=== PATIENT | female | born 1970 | race Caucasian/White ===

== ENCOUNTER 2020-11-30 15:48 | Emergency (ER) | payer SELFPAY ==
--- NOTE | ~2020-11-30 | CT_ITS ---
EXAMINATION: CT facial bones w con DATE: 11/30/2020 17:48 INDICATION: Left jaw pain and swelling. TECHNIQUE: Computed tomography (CT) of the facial bones and maxillofacial region was performed with 7 5 mL Omnipaque 350 intravenous contrast. Automated exposure control and iterative reconstruction tech [employer] were employed. The dose-length product was 286.17 mGy-cm. COMPARISON: Maxillofacial CT 03/15/2018, 02/19/17 FINDINGS: There is a 2.0 x 1.5 cm mass in superficial left parotid gland. There is leftward deviation of the superior nasal septum and rightward deviation of the inferior nasal septum. There is mild muc osal thickening in left maxillary sinus. The mastoid air cells are normal. There are carious lesions of teeth 3, 8, 18, and 28. Tooth 19 is broken with periapical lucencies. IMPRESSION: 1. Dental disease. 2. 2.0 cm left parotid mass, stable from 02/19/17. The differential diagnosis includes benign mixed tu mor and Warthin tumor. Ultrasound-guided fine-needle aspiration is recommended. Reviewed, dictated and finalized at location A. STANT PROFESSOR OF DIETETICS IMPRESSION: 1. Dental disease. 2. 2.0 cm left parotid mass, stable from 02/19/17. The differential diagnosis in cludes benign mixed tumor and Warthin tumor. Ultrasound-guided fine-needle aspi ration is recommended.
[2020-11-30 15:55] VITALS: BP 165/114; PULSE 86; RESP 20; TEMP 36.7; O2SAT 97
[2020-11-30 17:07] LABS: Basophils Absolute Auto 0.05 K/mm3 (0.00-0.10); Basophils Percent Auto 0.6 % (0.0-1.0); Eosinophils Absolute Auto 0.25 K/mm3 (0.02-0.50); Hematocrit 40.4 % (35.0-49.0); Hemoglobin 13.6 g/dL (12.0-15.0); Immature Granulocyte Absolute 0.03 K/mm3 (0.00-0.00); Immature Granulocyte Percent A 0.4 % (0.0-0.0); Lymphocytes Absolute Auto 2.63 K/mm3 (1.10-4.50); Lymphocytes Percent Auto 31.8 % (18.0-42.0); Mean Corpuscular HGB Conc 33.7 g/dL (32.0-36.0); Mean Corpuscular Hemoglobin 27.9 pg (27.0-31.0); Mean Corpuscular Volume 82.8 fL (78.0-102.0); Mean Platelet Volume 9.8 fl (9.2-11.8); Monocytes Absolute Auto 0.43 K/mm3 (0.10-0.90); Monocytes Percent Auto 5.2 % (2.0-11.0); Neutrophils Absolute Auto 4.9 K/mm3 (1.7-7.2); Platelet Count Result 378 K/mm3 (150-420); Red Blood Count 4.88 M/mm3 (4.20-5.40); Red Cell Distribution Width 12.8 % (11.6-14.4); White Blood Count 8.3 K/mm3 (4.8-10.8)
[2020-11-30 17:20] LABS: Alanine Aminotransferase 24 U/L (14-59); Albumin Level 3.7 g/dL (3.4-5.0); Alkaline Phosphatase 93 U/L (46-116); Anion Gap 11 mmol/L (8-16); Aspartate Amino Transferase 16 U/L (15-37); Bilirubin,Total 0.2 mg/dL (0.00-1.00); Blood Urea Nitrogen 10 mg/dL (7-18); Calcium 8.6 mg/dL (8.5-10.1); Carbon Dioxide 24 mmol/L (21-32); Chloride 101 mmol/L (98-108); Estimated Glomerular Filt Rate > 60; Glucose 274 mg/dL (70-99); Osmolality Calculated 291 mOsm/kg (285-295); Potassium 3.8 mmol/L (3.5-5.1); Sodium 136 mmol/L (136-145); Total Protein 6.8 g/dL (6.4-8.2)
--- NOTE | 2020-11-30 17:36 | ED.SKABFB ---
HPI - Skin/Abscess/Foreign Bdy General Chief complaint: Skin/Abscess/Foreign Body Stated complaint: swollen jaw/pain Time Seen by Provider: 11/30/20 16:10 Source: patient Mode of arrival: ambulatory Limitations: no limitations History of Present Illness HPI narrative: Patient states to me she has been seen in past for parotid gland swelling on left side and that this had been treated in the past but the gland never returned to a normal size. She now has increased swelling and tenderness under angle of jaw on left, and broken off teeth over that area in her mouth. Pain has been moderately severe, ongoing, not relieved by ibuprofen. Nothing has made this better. Pain has steadily worse. Onset (ago): day(s) Severity: moderate Quality: aching Pain Consistency: constant Relieving factors: none Exacerbating factors: none Associated symptoms: denies other symptoms Related Data Allergies Allergy/AdvReac Type Severity Reaction Status Date / Time No Known Allergies Allergy Verified 11/30/20 16:01 Review of Systems Constitutional: Constitutional: Reports no additional constitutional complaints Eyes: Eyes: Reports no additional eye complaints ENT: Reports system reviewed and no additional complaints, except as documented Cardiovascular: Cardiovascular: Reports no additional cardiovascular complaints Respiratory: Respiratory: Reports no additional respiratory complaints Gastrointestinal: Gastrointestinal: Reports no additional gastrointestinal complaints Genitourinary: Genitourinary: Reports no additional female genitourinary complaints Musculoskeletal: Musculoskeletal: Reports no additional musculoskeletal complaints Integumentary/Breasts: Skin/Breast: Reports system reviewed and no additional complaints, except as docu Neurologic: Reports system reviewed and no additional complaints, except as documented Psychiatric: Psychiatric: Reports no additional psychiatric complaints Endocrine: Endocrine: Reports no additional endocrine complaints Hematologic/Lymphatic: Hematologic/Lymphatic: Reports no additional hematologic/lymphatic complaints Allergic/Immunologic: Allergic/Immunologic: Reports no additional allergic/immunologic complaints [facility] Past Medical History Medical History (Updated 12/01/20 @ 00:49 by Carlos Pal MD) Abscessed tooth Diabetes Parotid mass Family History Family History (Updated 12/01/20 @ 00:51 by Carlos Pal MD) Mother CAD (coronary artery disease) COPD with emphysema Father CAD in [place] artery Hypertension Social History Social History (Updated 12/01/20 @ 00:52 by Carlos Pal MD) Smoking packs per day: 0.5 Smoking cigarettes per day: 10.0 Alcohol use details: none Living arrangements: with family 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 She is swollen over base of left jaw at where submandibular gland is. This is tender to touch. She has two broken off teeth above this area that are probably chronically abscessed. Eyes: Conjunctivae: conjunctivae normal Neck: Neck: normal visual inspection Chest: Chest palpation & inspection: normal inspection of the chest Resp: Effort & Inspection: normal respiratory effort Cardio: Rate: regular rate Rhythm: regular rhythm GI: GI Palp: Yes Soft to palpation (nontender) Skin: General skin exam: normal color Neuro: General: patient oriented x3 and moves all extremities Extrem: General: normal to inspection Psych: Appearance: grossly normal Mental Status: mental status grossly normal Thought content: Yes Normal thought content present Course Course Emergency Course: We did a Ct scan and labs. I was concerned she may have an abscess large enough to be require drainage.
[2020-11-30 18:43] VITALS: BP 160/90; PULSE 90; RESP 18
[2020-11-30] MEDS: KETOROLAC (*BKC) 60 MG/2 ML VIAL IM (19:07)
[2020-11-30] MEDS: PENICILLIN G BENZATHINE 1,200,000 UNITS/2 ML SYRINGE 1200000 UNITS IM (19:08)
[2020-11-30 19:13] VITALS: BP 140/88; PULSE 88; RESP 18; TEMP 36.8; O2SAT 95
== END 2020-11-30 19:15 | disposition home or self-care (01) ==
PROVIDERS: Emergency Provider Emergency Medicine; PCP Family Medicine
DX: K11.8 Other diseases of salivary glands (principal); K04.7 Periapical abscess without sinus; E11.9 Type 2 diabetes mellitus without complications; F17.210 Nicotine dependence, cigarettes, uncomplicated
CPT/HCPCS: 36415; 70487; 80053; 85025; 96372; 99283; 99284; J0561; J1885; Q9967

== ENCOUNTER 2021-12-07 19:00 | Emergency (ER) | payer SELFPAY ==
--- NOTE | ~2021-12-07 | XR_ITS ---
EXAMINATION: XR chest 2V 12/07/2021 20:26 INDICATION: Chest pressure PROCEDURE: 2 view chest COMPARISON: 03/19/2019 FINDINGS: The lungs are clear. The cardiomediastinal silhouette is within normal limits. There are no pleural effusions. There is no pneumothorax suspected. IMPRESSION: 1: NO ACUTE CARDIOPULMONARY DISEASE. Reviewed, dictated and finalized at location A. 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
--- NOTE | 2021-12-07 19:05 | ECG_ITS ---
Measurements Intervals [place] Rate: 84 P: 14 MN: 130 QRS: 6 QRSD: 96 T: 4 QT: 366 QTc: 433 Interpretive Statements SINUS RHYTHM WITH FREQUENT SUPRAVENTRICULAR PREMATURE COMPLEXES BASELINE ARTIFACT ABNORMAL ECG NO PREVIOUS ECG AVAILABLE FOR COMPARISON Electronically Signed On 12-08-2021 10:56:25 BUDGET ENGINEER by Mino Aguirre M.D.
--- NOTE | 2021-12-07 19:15 | ED.CHESTPAIN ---
HPI - Chest Pain General Chief Complaint: Chest Pain Stated Complaint: chest pain, high BP Time Seen by Provider: 12/07/21 19:15 Source: patient Mode of arrival: ambulatory Limitations: no limitations History of Present Illness HPI narrative: 50-year-old woman with a history of hypertension comes to the ER complaining of chest pressure, headache, and not feeling well for the last 3 or 4 days. The symptoms wax and wane. She noticed that her blood pressure has been high for the last several days. She denies shortness of breath, syncope, vomiting, radiating chest pain. Five or 6 years ago, patient had similar symptoms and was seen at [facility]. There she had a negative stress test. She was also told that she did not have a heart attack. She normally takes metoprolol for her hypertension however she states she can not afford the medication and so she has been taking her 10 mg propranolol twice a day. complaint: other (Chest pressure) Onset (ago): day(s) (3) Timing of current episode: episodic and daily Prior episodes: Yes Onset: during rest Pain location: substernal Pain radiation: none Severity: mild Quality: other (Pressure) Relieving factors: nothing Exacerbating factors: nothing Associated symptoms: other (Headache) Treatment prior to arrival: aspirin (325 mg yesterday and 325 mg today) Risk Factors Coronary artery disease risk factors: diabetes, smoking history and hypertension Related Data Home Medications Medication Instructions Recorded Confirmed metoprolol tartrate 25 mg PO BID 12/07/21 12/07/21 Allergies Allergy/AdvReac Type Severity Reaction Status Date / Time No Known Allergies Allergy Verified 12/07/21 20:12 Review of Systems Review of Systems: All systems reviewed & are unremarkable except as noted in HPI and below Constitutional: Constitutional: Denies chills and Denies fever(s) ENT: Denies nasal congestion and Denies sore throat Cardiovascular: Cardiovascular: Reports chest pain, Denies rapid heart rate, Denies radiating jaw, neck or arm pain and Denies slow heart rate Respiratory: Respiratory: Denies cough and Denies dyspnea Gastrointestinal: Gastrointestinal: Denies abdominal pain, Denies nausea and Denies vomiting Musculoskeletal: Musculoskeletal: Denies arthralgias and Denies joint swelling Integumentary/Breasts: Skin/Breast: Denies pruritus, Denies erythema and Denies rash Neurologic: Denies dizziness, Denies syncope, Reports headache(s), Denies focal weakness and Denies numbness Allergic/Immunologic: Allergic/Immunologic: Denies throat swelling and Denies tongue swelling [facility] Past Medical History Medical History (Updated 12/08/21 @ 01:34 by Maury Gill MD) Abscessed tooth Diabetes Hypertension Parotid mass Family History Family History (Updated 12/01/20 @ 00:51 by Carlos Pal MD) Mother CAD (coronary artery disease) COPD with emphysema Father CAD in [place] artery Hypertension Social History Social History Smoking packs per day: 0.5 Smoking cigarettes per day: 10.0 Alcohol use details: none 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 Exam Const: General: healthy appearing, no acute distress and alert Orientation/consciousness: patient oriented x3 Limitations: no limitations Eyes: Conjunctivae: conjunctivae normal Pupils: Equal, round and reactive pupils present EOM: EOMs intact bilaterally Resp: Effort & Inspection: normal respiratory effort and not labored Auscultation: clear to auscultation bilaterally, no rales, no rhonchi and no wheezes Cardio: Rate: regular rate Rhythm: regular rhythm Heart sounds: no murmurs Skin: General skin exam: normal color, no jaundice and no pallor Rashes: no rashes Neuro: General: patient oriented x3, moves all extremities, no focal motor deficits and CN's II-XI intact bilaterally Speech: normal speech Gait exam (Keyur
[2021-12-07 19:24] VITALS: BP 195/162; PULSE 89; RESP 18; RESP 19; TEMP 36.9; O2SAT 99
[2021-12-07 19:25] VITALS: BP 162/135
[2021-12-07 19:30] VITALS: BP 134/92; PULSE 84; O2SAT 98
--- NOTE | 2021-12-07 19:43 | PC.NURSE ---
two unsuccessful attempts to start an IV, left AC and posterior left forearm
[2021-12-07 19:46] LABS: Basophils Absolute Auto 0.07 K/mm3 (0.00-0.10); Basophils Percent Auto 0.7 % (0.0-1.0); Eosinophils Absolute Auto 0.24 K/mm3 (0.02-0.50); Eosinophils Percent Auto 2.2 % (1.0-6.0); Hematocrit 43.7 % (35.0-49.0); Hemoglobin 14.8 g/dL (12.0-15.0); Immature Granulocyte Absolute 0.04 K/mm3 (0.00-0.00); Immature Granulocyte Percent A 0.4 % (0.0-0.0); Lymphocytes Absolute Auto 3.56 K/mm3 (1.10-4.50); Lymphocytes Percent Auto 33.1 % (18.0-42.0); Mean Corpuscular HGB Conc 33.9 g/dL (32.0-36.0); Mean Corpuscular Hemoglobin 28.1 pg (27.0-31.0); Mean Corpuscular Volume 82.9 fL (78.0-102.0); Mean Platelet Volume 10.1 fl (9.2-11.8); Monocytes Absolute Auto 0.74 K/mm3 (0.10-0.90); Monocytes Percent Auto 6.9 % (2.0-11.0); Neutrophils Absolute Auto 6.1 K/mm3 (1.7-7.2); Neutrophils Percent Auto 56.7 % (50.0-70.0); Platelet Count Result 407 K/mm3 (150-420); Red Blood Count 5.27 M/mm3 (4.20-5.40); Red Cell Distribution Width 12.6 % (11.6-14.4); White Blood Count 10.8 K/mm3 (4.8-10.8)
[2021-12-07 20:07] LABS: D Dimer 0.19 mg/L (0.19-0.50)
[2021-12-07 20:08] LABS: Alanine Aminotransferase 24 U/L (14-59); Albumin Level 3.7 g/dL (3.4-5.0); Alkaline Phosphatase 90 U/L (46-116); Anion Gap 13 mmol/L (8-16); Aspartate Amino Transferase 10 U/L (15-37); Bilirubin,Total 0.3 mg/dL (0.00-1.00); Blood Urea Nitrogen 14 mg/dL (7-18); Calcium 8.9 mg/dL (8.5-10.1); Carbon Dioxide 24 mmol/L (21-32); Chloride 102 mmol/L (98-108); Estimated Glomerular Filt Rate > 60; Glucose 211 mg/dL (70-99); NT Pro B Type Natriuretic Pept 16 pg/mL (0-125); Osmolality Calculated 294 mOsm/kg (285-295); Potassium 3.8 mmol/L (3.5-5.1); Sodium 139 mmol/L (136-145); Total Protein 6.8 g/dL (6.4-8.2)
[2021-12-07 20:11] LABS: Troponin I 9.3 ng/L (0.00-60.4)
[2021-12-07 20:12] LABS: Magnesium 1.7 mg/dL (1.8-2.4)
[2021-12-07 20:36] LABS: Add Urine Microscopic? YES; Appearance Urine Clear (Clear); Bilirubin Urine Negative (Negative); Blood Urine Negative (Negative); Color Urine Light Yellow (Yellow); Glucose Urine UA Negative (Negative); Ketones Urine Negative (Negative); Leukocyte Esterase Ur Trace LEU/UL (Negative); Nitrate Urine Negative (Negative); Protein Urine Trace (Negative); Specific Grav Ur 1.025 (1.010-1.020); Urobilinogen Urine 0.2 mg/dL (0.2-1.0)
[2021-12-07 20:46] LABS: Bacteria Urine 4+ /hpf; Squamous Epithelial Cell Urine Moderate /hpf (Few); WBC Urine 0-3 /hpf (0-3)
[2021-12-07 22:50] LABS: Troponin I 10.2 ng/L (0.00-60.4)
[2021-12-08 00:15] VITALS: BP 112/74; O2SAT 96
[2021-12-08 02:28] VITALS: BP 115/66; PULSE 78; RESP 16; TEMP 36.6; O2SAT 98
== END 2021-12-08 02:35 | disposition home or self-care (01) ==
PROVIDERS: Emergency Provider Emergency Medicine; PCP Family Medicine
DX: R07.9 Chest pain, unspecified (principal); I10 Essential (primary) hypertension
CPT/HCPCS: 36415; 71046; 80053; 81001; 83735; 83880; 84484; 85025; 85380; 93005; 99284

== ENCOUNTER 2022-12-15 15:06 | Emergency (ER) | payer OTHER, SELFPAY ==
--- NOTE | ~2022-12-15 | CT_ITS ---
EXAMINATION: CT abdomen pelvis w con DATE: 12/15/2022 17:06 INDICATION: Right lower quadrant and left lower quadrant abdominal pain for several days. Urinary gerald quency and urgency. History of kidney stones. TECHNIQUE: Computed tomography (CT) of the abdomen and pelvis was performed with 100 CC Omnipaque 350 intravenous contrast. Automated exposure control and iterative reconstruction technique were employe d. Exam dose: 510.64 mGy-cm total exam DLP. COMPARISON: None. FINDINGS: The lung bases are clear of infiltrate or consolidation. Normal heart size. No pericardial or pleural effusion. The liver, spleen, pancreas, gallbladder, bile ducts and pancreatic duct as well as adrenal glands ap pear normal. Approximately 12.5 mm upper pole and 8.5 mm lower pole left renal cysts. No other renal space-occupyi ng mass lesion is detected. No urinary tract calculus or hydroureteronephrosis. Normal caliber of the abdominal aorta. There is a large right ovarian cyst measuring up to 10.5 cm transverse, 9.8 cm vertical and 9 cm AP d imension. 11.5 mm left ovarian cyst. The uterus and urinary bladder are unremarkable. Normal appendix. No bowel obstruction, bowel wall thickening, pneumatosis or intraperitoneal free air . 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 No intraperitoneal or retroperitone al or pelvic mass lesion or adenopathy or ascites. Is noted otherwise. Mild degenerative change of the thoracic and lumbar spine. No suspicious osteolytic or osteoblastic l esions. IMPRESSION: Large right lower anterior abdominal and pelvic wall hematoma with surrounding subcutane ous fat soft tissue infiltration and mild fluid Left renal cysts Up to 10.5 cm right ovarian cyst, 11.5 mm left ovarian cyst Reviewed, dictated and finalized at [facility]. Reviewed, dictated and finalized at location [facility]. IMPRESSION: Large right lower anterior abdominal and pelvic wall hematoma with surrounding subcutaneous fat soft tissue infiltration and mild fluid Left renal cysts Up to 10.5 cm right ovarian cyst, 11.5 mm left ovarian cyst
--- NOTE | 2022-12-15 15:25 | ED.ABDPAIN ---
HPI - Abdominal Pain General Chief Complaint: Abdominal Pain Stated Complaint: abdominal pain Time Seen by Provider: 12/15/22 15:14 Source: patient Mode of arrival: ambulatory History of Present Illness HPI narrative: 51-year-old female with hypertension, diabetes mellitus, status post BTL, status post , status post uterine ablation, Kidney stones presents to the ER with -- 1 day history of left lower quadrant abdominal pain. The pain is intermittent. Has nausea without any vomiting or diarrhea. -- increased urinary frequency and increased urge. No dysuria or hematuria. -- Mass in the right suprapubic region which is chronic. MD elicited complaint: abdominal pain Pertinent past history: kidney stones Onset (ago): day(s) ( Started last night) Pain Consistency: intermittent Location: LLQ Severity: moderate Quality: aching Radiation: L flank and chest Migration to: no migration Exacerbating factors: nothing Relieving factors: nothing Associated symptoms: nausea Related Data Patient : No Home Medications Medication Instructions Recorded Confirmed metoprolol tartrate 25 mg tablet 25 mg PO BID 12/07/21 12/15/22 metformin 500 mg tablet 500 mg PO BID 12/15/22 12/15/22 Allergies Allergy/AdvReac Type Severity Reaction Status Date / Time codeine Allergy Nausea and Verified 12/15/22 15:27 Vomiting Review of Systems Review of Systems: All systems reviewed & are unremarkable except as noted in HPI and below Constitutional: Constitutional: Reports as per HPI and Reports no additional constitutional complaints Eyes: Eyes: Reports as per HPI and Reports no additional eye complaints ENT: Reports system reviewed and no additional complaints, except as documented and Reports as per HPI Cardiovascular: Cardiovascular: Reports as per HPI and Reports no additional cardiovascular complaints Respiratory: Respiratory: Reports as per HPI and Reports no additional respiratory complaints Gastrointestinal: Gastrointestinal: Reports as per HPI, Reports no additional gastrointestinal complaints and Reports abdominal pain Comments: chronic right suprapubic mass. New left lower quadrant abdominal pain. Genitourinary: Genitourinary: Reports no additional female genitourinary complaints Comments: Status post uterine ablation. Musculoskeletal: Musculoskeletal: Reports no additional musculoskeletal complaints and Reports as per HPI Integumentary/Breasts: Skin/Breast: Reports system reviewed and no additional complaints, except as docu and Reports as per HPI Neurologic: Reports system reviewed and no additional complaints, except as documented and Reports as per HPI Psychiatric: Psychiatric: Reports no additional psychiatric complaints and Reports as per HPI Endocrine: Endocrine: Reports no additional endocrine complaints and Reports as per HPI Hematologic/Lymphatic: Hematologic/Lymphatic: Reports no additional hematologic/lymphatic complaints and Reports as per HPI Allergic/Immunologic: Allergic/Immunologic: Reports no additional allergic/immunologic complaints and Reports as per HPI PMFSH Past Medical History Medical History Abscessed tooth Diabetes Hypertension Parotid mass Family History Family History Mother CAD (coronary artery disease) COPD with emphysema Father CAD in [place] artery Hypertension Social History Social History Smoking packs per day: 0.5 Smoking cigarettes per day: 10.0 Alcohol use details: none Living arrangements: with family 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
[2022-12-15 15:28] VITALS: BP 159/98; PULSE 94; RESP 20; TEMP 36.9; O2SAT 98
[2022-12-15 15:46] LABS: Basophils Absolute Auto 0.06 K/mm3 (0.00-0.10); Basophils Percent Auto 0.6 % (0.0-1.0); Eosinophils Absolute Auto 0.22 K/mm3 (0.02-0.50); Eosinophils Percent Auto 2.1 % (1.0-6.0); Hematocrit 41.5 % (35.0-49.0); Hemoglobin 14.3 g/dL (12.0-15.0); Immature Granulocyte Absolute 0.04 K/mm3 (0.00-0.00); Immature Granulocyte Percent A 0.4 % (0.0-0.0); Lymphocytes Absolute Auto 2.88 K/mm3 (1.10-4.50); Lymphocytes Percent Auto 27.4 % (18.0-42.0); Mean Corpuscular HGB Conc 34.5 g/dL (32.0-36.0); Mean Corpuscular Volume 81.2 fL (78.0-102.0); Mean Platelet Volume 9.9 fl (9.2-11.8); Monocytes Absolute Auto 0.64 K/mm3 (0.10-0.90); Monocytes Percent Auto 6.1 % (2.0-11.0); Neutrophils Absolute Auto 6.7 K/mm3 (1.7-7.2); Neutrophils Percent Auto 63.4 % (50.0-70.0); Platelet Count Result 449 K/mm3 (150-420); Red Blood Count 5.11 M/mm3 (4.20-5.40); Red Cell Distribution Width 12.4 % (11.6-14.4); White Blood Count 10.5 K/mm3 (4.8-10.8)
[2022-12-15 15:48] LABS: Appearance Urine Clear (Clear); Bilirubin Urine Negative (Negative); Blood Urine Negative (Negative); Color Urine Light Yellow (Yellow); Glucose Urine UA 3+ (Negative); Ketones Urine Negative (Negative); Leukocyte Esterase Ur Negative LEU/UL (Negative); Nitrate Urine Negative (Negative); Protein Urine Trace (Negative); Urobilinogen Urine 0.2 mg/dL (0.2-1.0)
[2022-12-15 15:49] LABS: Urine Pregnancy Test Negative
[2022-12-15 15:50] LABS: Pregnancy On Board Control Positive
[2022-12-15 15:55] LABS: Add Urine Microscopic? YES; Bacteria Urine 1+ /hpf; RBC Urine 0-2 /hpf (0-2); Squamous Epithelial Cell Urine Few /hpf (Few); WBC Urine None seen /hpf (0-3)
[2022-12-15 16:00] LABS: Prothrombin Time 10.7 Seconds (9.50-12.10)
[2022-12-15 16:04] LABS: Alanine Aminotransferase 22 U/L (14-59); Albumin Level 3.6 g/dL (3.4-5.0); Alkaline Phosphatase 120 U/L (46-116); Anion Gap 9 mmol/L (8-16); Aspartate Amino Transferase < 10 U/L (15-37); Bilirubin,Total 0.2 mg/dL (0.00-1.00); Blood Urea Nitrogen 11 mg/dL (7-18); Calcium 9.1 mg/dL (8.5-10.1); Carbon Dioxide 27 mmol/L (21-32); Chloride 97 mmol/L (98-108); Estimated Glomerular Filt Rate > 60; Glucose 389 mg/dL (70-99); Lipase 30 U/L (16-77); Osmolality Calculated 291 mOsm/kg (285-295); Potassium 3.7 mmol/L (3.5-5.1); Sodium 133 mmol/L (136-145); Total Protein 7.3 g/dL (6.4-8.2); Troponin I 5.7 ng/L (0.00-60.4)
[2022-12-15 16:05] LABS: Lactic Acid Reflex 2.7 mmol/L (0.4-2.0)
[2022-12-15] MEDS: SODIUM CHLORIDE 0.9% IV 1,000 ML 999 ML IV CONT (16:17)
[2022-12-15] MEDS: INSULIN HUMAN REGULAR (*BKC) 1,000 UNITS/10 ML VIAL 8 UNITS SUB-Q (16:17)
[2022-12-15 17:18] LABS: Glucose Point of Care 253 mg/dl (65-105)
[2022-12-15 17:50] VITALS: BP 156/100; PULSE 89; RESP 20; TEMP 36.7; O2SAT 98
== END 2022-12-15 18:00 | disposition home or self-care (01) ==
PROVIDERS: Emergency Provider Internal Medicine Critical Care Medicine
DX: E11.65 Type 2 diabetes mellitus with hyperglycemia (principal); S30.1XXA Contusion of abdominal wall, initial encounter; N83.202 Unspecified ovarian cyst, left side; N83.201 Unspecified ovarian cyst, right side; I10 Essential (primary) hypertension; E11.9 Type 2 diabetes mellitus without complications; Z79.84 Long term (current) use of oral hypoglycemic drugs; X58.XXXA Exposure to other specified factors, initial encounter
CPT/HCPCS: 36415; 74177; 80053; 81001; 81025; 82948; 83605; 83690; 84484; 85025; 85610; 96360; 96361; 99284; J1815; J7030; Q9967